=== PATIENT | male | born 1985 | race Caucasian/White ===

== ENCOUNTER 2017-10-06 12:06 | Emergency (ER) | payer MEDICAID, OTHER ==
[~2017-10-06] VITALS: Ht 177.8 cm; Wt 88.0 kg
[~2017-10-06 12:06] MED LIST: BACDS PO; HYDR1TAB PO
[2017-10-06 12:27] VITALS: BP 117/80
[2017-10-06] MEDS ORDERED: TETanus/Pertussis (Acell)/Diphther VAC/PF (Tdap-Adult) 0.5ml syringe IM ONE (13:10)
[2017-10-06] MEDS ORDERED: BACDS PO (13:11)
== END 2017-10-06 13:32 | disposition home or self-care (01) ==
LOC: ER 12:06
DX: L03.317 Cellulitis of buttock (principal); L73.9 Follicular disorder, unspecified; F12.10 Cannabis abuse, uncomplicated; Z79.899 Other long term (current) drug therapy
CPT/HCPCS: 87070; 87077; 87186; 90471; 90715; 99284